=== PATIENT | male | born 1975 | race Caucasian/White ===

== ENCOUNTER 2024-12-06 13:54 | Outpatient (CLI) | payer OTHER, SELFPAY | END 2024-12-06 13:55 | disposition home or self-care (01) | PROVIDERS: PCP Nurse Practitioner Family; Visit Provider Nurse Practitioner Family | DX: E11.9 Type 2 diabetes mellitus without complications (principal); I10 Essential (primary) hypertension; R74.8 Abnormal levels of other serum enzymes; E78.2 Mixed hyperlipidemia; M79.10 Myalgia, unspecified site; Z51.81 Encounter for therapeutic drug level monitoring | CPT/HCPCS: 80053; 80061; 82607; 84439; 84443 ==

== ENCOUNTER 2024-12-17 07:04 | Outpatient (CLI) | payer OTHER, SELFPAY ==
--- NOTE | 2024-12-17 07:15 | CRLHL7_ITS ---
For Patients: As a result of the Century Cures Act, medical imaging exams and procedure reports are released immediately into your electronic medical record. You may view this report before your referring provider. If you have questions, please contact your health care provider. INDICATION: Elevated Liver Enzymes. COMPARISON: none TECHNIQUE: Real time jerome scale imaging and color Doppler analysis was performed of the right upper quadrant. FINDINGS: Liver echotexture is diffusely increased. Liver measures 19.4 cm. There is a normal appearance of the hepatic IVC and proximal abdominal aorta. There is no evidence of ascites. The gallbladder is of normal size and there is no evidence of intraluminal stones or sludge. The gallbladder wall measures 2 mm in thickness. The common bile duct is of normal size and measures 5 mm in diameter at the level of the bairon hepatis. The pancreas appears heterogeneous. There is no evidence of a stone or hydronephrosis within the right kidney. The right kidney measures 12.1 cm in length. IMPRESSION: Hepatomegaly and diffuse hepatic steatosis. Dictated by Vasyl Lyles MD @ 12/17/2024 10:14:35 AM (Electronically Signed)
== END 2024-12-17 07:05 | disposition home or self-care (01) ==
PROVIDERS: PCP Nurse Practitioner Family; Visit Provider Nurse Practitioner Family
DX: R74.8 Abnormal levels of other serum enzymes (principal); R16.0 Hepatomegaly, not elsewhere classified; K76.0 Fatty (change of) liver, not elsewhere classified
CPT/HCPCS: 76705

== ENCOUNTER 2025-01-10 10:16 | Outpatient (CLI) | payer OTHER, SELFPAY | END 2025-01-10 10:17 | disposition home or self-care (01) | PROVIDERS: PCP Nurse Practitioner Family; Visit Provider Nurse Practitioner Family | DX: M79.10 Myalgia, unspecified site (principal); E11.9 Type 2 diabetes mellitus without complications; E03.9 Hypothyroidism, unspecified; R16.0 Hepatomegaly, not elsewhere classified; K76.0 Fatty (change of) liver, not elsewhere classified; E78.2 Mixed hyperlipidemia; R74.8 Abnormal levels of other serum enzymes; I10 Essential (primary) hypertension | CPT/HCPCS: 82043; 82570; 82947; 83605; 86376; 86803 ==

== ENCOUNTER 2025-01-24 12:49 | Outpatient (CLI) | payer OTHER, SELFPAY ==
--- NOTE | 2025-01-24 13:00 | CRLHL7_ITS ---
For Patients: As a result of the Century Cures Act, medical imaging exams and procedure reports are released immediately into your electronic medical record. You may view this report before your referring provider. If you have questions, please contact your health care provider. EXAM: MRI OF THE RIGHT HIP, WITHOUT CONTRAST CLINICAL INDICATION: Right hip pain. COMPARISON PLAIN FILMS: 01/10/2025. COMPARISON CROSS-SECTIONAL IMAGING STUDIES: None. TECHNICAL: Axial, sagittal and coronal PD FS small field of view images of the hip. Coronal T1, PD FS and axial T1 images of the pelvis. FINDINGS: RIGHT HIP: Labrum: No labral tear or paralabral cyst. Articular Cartilage: Mild hypertrophic changes in the lateral acetabulum and femoral head neck junction with broadening of the femoral head neck junction. Small subcortical cyst at the anterolateral femoral head neck junction. Findings can be associated with mixed type impingement. The articular cartilage is intact. Joint Space: No effusion, synovitis or loose body. LEFT HIP: No effusion or subchondral changes. No paralabral cyst. OSSEOUS STRUCTURES: There is chronic periosteal thickening of the proximal lateral right femoral diaphysis with a focal area of incomplete cortical fracture at the inferior margin of the cortical thickening. No periosteal reaction or adjacent intramedullary edema. Findings consistent with a chronic stress fracture. No evidence for avascular necrosis. MUSCULOTENDINOUS STRUCTURES AND BURSAE: Gluteus Minimus and Medius: No tendon tear or tendinopathy. No muscle atrophy or edema. Bursae: No trochanteric or iliopsoas bursitis. Common Hamstrings: No tendon tear or tendinopathy. Other: Tendons and myotendinous junctions are intact. No muscle atrophy or edema. SOFT TISSUES: No subcutaneous edema, hematoma or fluid collection. OTHER JOINTS: Degenerative changes in the SI joints with anterior bridging osteophytes. No subchondral edema. Pubic symphysis is maintained. INTRAPELVIC CONTENTS: Fluid or cysts are present in the scrotum. Bilateral cord lipomas. Colonic diverticula. NEUROVASCULAR STRUCTURES: No abnormality involving the visualized proximal femoral or proximal sciatic nerves. No aneurysmal dilation of the visualized distal aorta or iliac arterial circulation. IMPRESSION: 1. Chronic stress fracture of the right lateral proximal femoral diaphysis. 2. Morphologic changes in the right hip can be associated with mixed type impingement. 3. Degenerative changes in the SI joints. 4. Fluid or cysts are present in the scrotum. 5. Bilateral cord lipomas. 6. Colonic diverticula. Dictated by Geovani Marshall MD @ 01/25/2025 12:03:40 PM (Electronically Signed)
== END 2025-01-24 12:50 | disposition home or self-care (01) ==
LOC: MRI 12:50
PROVIDERS: PCP Nurse Practitioner Family; Visit Provider Nurse Practitioner Family
DX: M25.551 Pain in right hip (principal); M84.352 Stress fracture, left femur; M46.1 Sacroiliitis, not elsewhere classified
CPT/HCPCS: 73721

== ENCOUNTER 2025-02-11 14:01 | Outpatient (CLI) | payer OTHER, SELFPAY | END 2025-02-11 14:02 | disposition home or self-care (01) | PROVIDERS: PCP Nurse Practitioner Family; Visit Provider Nurse Practitioner Family | DX: E03.9 Hypothyroidism, unspecified (principal); I10 Essential (primary) hypertension; Z01.818 Encounter for other preprocedural examination | CPT/HCPCS: 80053; 84443; 85025 ==